=== PATIENT | female | born 1950 | race Caucasian/White ===

== ENCOUNTER → 2017-08-06 10:10 | Outpatient (CLI) | payer MEDICARE, MEDICAID | END | disposition home or self-care (01) | LOC: D.CT 10:10 | DX: R59.0 Localized enlarged lymph nodes (principal) ==

== ENCOUNTER → 2018-02-11 17:25 | Outpatient (CLI) | payer MEDICARE, MEDICAID | END | disposition home or self-care (01) | LOC: D.MAMMO 13:15 | DX: Z12.31 Encounter for screening mammogram for malignant neoplasm of breast (principal) ==

== ENCOUNTER → 2018-03-10 16:47 | Outpatient (CLI) | payer MEDICARE, MEDICAID | END | disposition home or self-care (01) | LOC: D.MAMMO 14:00 | DX: R93.8 Abnormal findings on diagnostic imaging of other specified body structures (principal) ==

== ENCOUNTER → 2018-04-01 12:04 | Outpatient (CLI) | payer MEDICARE, MEDICAID | END | disposition home or self-care (01) | LOC: D.US 12:04 | DX: N63.12 Unspecified lump in the right breast, upper inner quadrant (principal); R92.8 Other abnormal and inconclusive findings on diagnostic imaging of breast ==

== ENCOUNTER 2018-05-24 08:00 | Outpatient (CLI) | payer MEDICARE, MEDICAID | END 2018-05-24 09:00 | disposition home or self-care (01) | LOC: D.MAMMO 08:00 | DX: N63.12 Unspecified lump in the right breast, upper inner quadrant (principal) ==

== ENCOUNTER → 2018-11-22 10:02 | Outpatient (CLI) | payer MEDICARE, MEDICAID | END | disposition home or self-care (01) | LOC: D.MRI 10:00 | DX: M54.5 Low back pain (principal) ==

== ENCOUNTER 2019-08-05 09:00 | Outpatient (CLI) | payer MEDICARE, MEDICAID | END 2019-08-05 09:30 | disposition home or self-care (01) | LOC: D.MAMMO 09:00 | PROVIDERS: ATTEND Clinical Nurse Specialist Family Health | DX: Z12.31 Encounter for screening mammogram for malignant neoplasm of breast (principal) ==

== ENCOUNTER → 2019-08-08 15:35 | Outpatient (CLI) | payer MEDICARE, MEDICAID | END | disposition home or self-care (01) | LOC: D.RAD 15:35 | PROVIDERS: ATTEND Pain Medicine Interventional Pain Medicine | DX: M79.641 Pain in right hand (principal); M25.561 Pain in right knee ==